=== PATIENT | male | born 1975 | race Caucasian/White ===

== ENCOUNTER 2016-03-08 11:09 | Emergency (ER) | payer SELFPAY ==
[2016-03-08] MEDS ORDERED: HYDROcodone 7.5MG/APAP 325MG 1 EA TAB PO ONE (11:23)
--- NOTE | 2016-03-08 11:26 | ED.PDOC ---
History of Present Illness - General Chief Complaint: Lower Extremity Injury Stated Complaint: rt ankle injury Time Seen by Provider: 03/08/16 11:22 Additional Information: THIS PATIENT INJURED HIS LEFT ANKLE WHILE CLOSING A HEAVY GARAGE DOOR. NOW C/O PAIN AND SWELLING TO THE LATERAL ASPECT OF THE LEFT ANKLE. - History of Present Illness Occurred: just prior to arrival Pain - Lower Extremity: moderate: Left Ankle Method of Injury: direct blow Improving Factors: nothing Worsening Factors: movement Allergies/Adverse Reactions: Allergies NO KNOWN ALLERGY Allergy (Verified 12/31/14 13:48) Home Medications: Ambulatory Orders Acetaminophen W/ Codeine [Tylenol W/ CODEINE #3] 1 ea PO QID PRN #14 12/31/14 Diclofenac Potassium 50 mg PO BID #20 tab 03/08/16 Tramadol HCl 50 mg PO Q6HRS #20 tab 03/08/16 Review of Systems - Review of Systems Constitutional: States: no symptoms reported EENTM: States: no symptoms reported Respiratory: States: no symptoms reported Cardiology: States: no symptoms reported Gastrointestinal/Abdominal: States: no symptoms reported Genitourinary: States: no symptoms reported Musculoskeletal: States: joint pain, joint swelling Skin: States: no symptoms reported, change in color Neurological: States: no symptoms reported Endocrine: States: no symptoms reported Hematologic/Lymphatic: States: no symptoms reported All other Systems: Reviewed and Negative Past Medical History (General) - Patient Medical History Hx Stroke: No Hx Congestive Heart Failure: No Hx Diabetes: No Hx MRSA: No - Vaccination History Hx Influenza Vaccination: No Hx Pneumococcal Vaccination: No - Social History Hx Tobacco Use: Yes Family Medical History - Family History Father Family History: No Known Living Status: Still Living Physical Exam - Physical Exam General Appearance: Alert, Well Developed, Well Hydrated Eyes, Ears, Nose, Throat: PERRL/EOMI, normal ENT inspection Neck: non-tender, full range of motion, supple Cardiovascular/Respiratory: regular rate, rhythm, normal peripheral pulses, no JVD, normal breath sounds, no respiratory distress Back: normal inspection, no CVA tenderness Thigh/Hip: normal inspection, non-tender Leg: normal inspection Knee: normal inspection Ankle: deformity, swelling Foot: normal inspection DTR - Lower Extremities: 2+: Achilles, left, Achilles, right Mental Status: alert, oriented x 3 Progress - Results/Orders Results/Orders: PRELIMINARY REPORT: NO FRACTURE NOTED. HE WILL BE DISCHARGED ON CRUTCHES AND TO F/U WITH HIS PCP. - EKG/XRAY/CT XRAY: ankle Xray Comments: PRELIMINARY REPORT : NO FX OR DISLOCATION NOTED. Departure - Departure Clinical Impression: Sprain of left ankle or foot Contusion of left ankle Qualifiers: Encounter type: initial encounter Qualifier Code: (S90.02XA) Contusion of left ankle, initial encounter Time of Disposition: 11:57 Disposition: Discharge to Home or Self Care Departure Forms: ED Discharge - Pt. Copy, Patient Portal Self Enrollment Diet: resume usual diet Activity: walking as tolerated Prescriptions: Tramadol HCl 50 mg PO Q6HRS #20 tab Diclofenac Potassium 50 mg PO BID #20 tab Home Medications: Ambulatory Orders Acetaminophen W/ Codeine [Tylenol W/ CODEINE #3] 1 ea PO QID PRN #14 12/31/14 Diclofenac Potassium 50 mg PO BID #20 tab 03/08/16 Tramadol HCl 50 mg PO Q6HRS #20 tab 03/08/16 Additional Instructions: TO YOUR FAMILY DOCTOR IN ONE WEEK
[2016-03-08 12:15] VITALS: BP 122/72; TEMP 97.8; O2SAT 96
--- NOTE | 2016-03-08 13:06 | RAD ---
EXAM DESCRIPTION: XR ANKLE 3 OR MORE VIEWS CLINICAL HISTORY: rt ankle injury COMPARISON: None. TECHNIQUE: Three views. FINDINGS: Small joint effusion is evident. No fracturing is detected. Minimal intertarsal arthritis is observed. IMPRESSION: A joint effusion is evident. No fracturing is seen. Electronically signed by: Jacob Llamas MD 03/08/2016 13:04
== END 2016-03-08 12:10 | disposition home or self-care (01) ==
LOC: ER 11:09
DX: S93.402A Sprain of unspecified ligament of left ankle, initial encounter (principal); Z87.891 Personal history of nicotine dependence; W22.8XXA Striking against or struck by other objects, initial encounter

== ENCOUNTER 2016-04-28 12:29 | Emergency (ER) | payer OTHER ==
[2016-04-28 13:04] VITALS: TEMP 98; O2SAT 98
--- NOTE | 2016-04-28 13:35 | RAD ---
Frontal, lateral, and oblique views of the right hand. Indication: crush injury to second and third digits. Comparison: December 31, 2014. Impression: Examination limited due to positioning. Chronic appearing deformity tuft second distal phalanx. No acute fracture or malalignment. If there is persistent anatomic snuffbox tenderness, repeat wrist imaging to include a scaphoid view is recommended in one week to evaluate for occult scaphoid fracture. Soft tissues are intact without radiopaque foreign body. Electronically signed by: Davie Espinal MD 04/28/2016 1:34 PM DIRECTOR OF SALES AND MARKETING
[2016-04-28] MEDS ORDERED: LIDOCAINE 1% 10 ML VIAL INJ ONE (13:55)
[2016-04-28] MEDS ORDERED: HYDROcodone 7.5MG/APAP 325MG 1 EA TAB PO ONE (14:41)
--- NOTE | 2016-04-28 15:15 | ED.PDOC ---
History of Present Illness - General Chief Complaint: Upper Extremity Injury Stated Complaint: smashed right hand Time Seen by Provider: 04/28/16 13:14 Source: patient Exam Limitations: no limitations - History of Present Illness Initial Comments: The patient is a 40-year-old male presenting to the emergency room secondary to crush injury to his right hand. He got his second and third digits just distal to the metacarpal phalangeal joints caught between a hard surface and a forklift. There is a 1 inch laceration over the inner aspect of the second digit. There is significant swelling. Sensation at this time appears to be preserved. Capillary refill appears to be less than 2 seconds. Alignment appears to be good. Range of motion appears to be as good as can be expected with the swelling. No other injuries. No other lacerations. S1 and blood loss to this time approximately 5 cc. He previously injured the second digit approximately 2 months ago as well with a distal tuft fracture. He is up- to-date on his tetanus from that injury. Timing/Duration: momentarily Severity: severe Improving Factors: nothing Worsening Factors: nothing Associated Symptoms: denies symptoms Allergies/Adverse Reactions: Allergies NO KNOWN ALLERGY Allergy (Verified 12/31/14 13:48) Home Medications: Ambulatory Orders Acetaminophen W/ Codeine [Tylenol W/ CODEINE #3] 1 ea PO QID PRN #14 12/31/14 Diclofenac Potassium 50 mg PO BID #20 tab 03/08/16 Tramadol HCl 50 mg PO Q6HRS #20 tab 03/08/16 Comjuvhlvsqzv-Yncn-Juewtvxwly [Fioricet] 1 ea PO Q8H PRN #21 tab 04/28/16 Sulfamethoxazole-Trimethoprim [Bactrim Ds 800-160 mg] 1 tab PO DAILY #5 tab 03/16 Review of Systems - Review of Systems Constitutional: States: no symptoms reported EENTM: States: no symptoms reported Respiratory: States: no symptoms reported Cardiology: States: no symptoms reported Gastrointestinal/Abdominal: States: no symptoms reported Genitourinary: States: no symptoms reported Musculoskeletal: States: see HPI Skin: States: see HPI Neurological: States: no symptoms reported Endocrine: States: no symptoms reported All other Systems: No Change from Baseline Past Medical History (General) - Patient Medical History Hx Seizures: No Hx Stroke: No Hx Dementia: No Hx Asthma: No Hx of COPD: No Hx Cardiac Disorders: No Hx Congestive Heart Failure: No Hx Pacemaker: No Hx Hypertension: No Hx Thyroid Disease: No Hx Diabetes: No Hx Gastroesophageal Reflux: No Hx Renal Disease: No Hx Cancer: No Hx of HIV: No Hx Hepatitis C: No Hx MRSA: No Surgical History: tonsillectomy - Vaccination History Hx Tetanus, Diphtheria Vaccination: Yes Hx Influenza Vaccination: No Hx Pneumococcal Vaccination: No - Social History Hx Tobacco Use: Yes Hx Alcohol Use: No Hx Substance Use: No Hx Substance Use Treatment: No Hx Depression: No - Female History Patient is a Female of Child Bearing Age (10 -59 yrs old): No Family Medical History - Family History Father Family History: No Known Living Status: Still Living Physical Exam - Physical Exam General Appearance: Alert, Anxious, No apparent distress Eye Exam: bilateral normal Ears, Nose, Throat: normal ENT inspection Neck: full range of motion, supple Respiratory: no respiratory distress, no accessory muscle use Cardiovascular/Chest: normal peripheral pulses, no edema, other - regular rate Peripheral Pulses: radial,right: 2+, radial,left: 2+ Rectal Exam: deferred Extremity: no pedal edema, no calf tenderness, normal capillary refill, other - see history of present illness. Neurologic: alert, normal mood/affect, oriented x 3 Skin Exam: normal color - with the exception of the laceration and bruising Comments: Vital Signs - 24 hr 04/28/16 12:59 Temperature 98.0 F Pulse Rate [ 74 left arm] Respiratory 18 Rate Blood Pressure 122/75 [Left Arm] O2 Sat by Pulse 98 Oximetry Progress - Progress Progress: 04/28/16 15:16 the patient is a 40-year-old male presenting to the emergency room secondary to crush injury from a forklift 2 the second and third digit of his right hand.. X-ray shows no evidence of any new fracture or dislocation. Laceration to the inner aspect of the second digit of the right hand was cleaned with hydrogen peroxide and then Steri-Strips were used to reapproximate tissue. digital block was donewith 6 cc of Xylocaine without epinephrine for cleaning and repair. Risks and benefits were explained prior and patient did agree to proceed. He can archie tape the second and third digit in the weeks to come to help reduce discomfort. Steri-Strips can fall off on their own. Fioricet will be used for pain control and he can use additionally ibuprofen if needed. Bactrim will be used for 5 days for prophylaxis. ER warnings were given for any acute worsening. If pain worsens instead of improves over the coming weeks and repeat x-ray may be warranted. - Results/Orders Results/Orders: x-ray of the hand shows no evidence of new fracture. There is evidence of the previous fracture Departure - Departure Clinical Impression: Laceration of finger Qualifiers: Encounter type: initial encounter Qualifier Code: (S61.219A) Laceration without foreign body of unspecified finger without damage to nail, initial encounter Disposition: Discharge to Home or Self Care Condition: Fair Departure Forms: ED Discharge - Pt. Copy, Patient Portal Self Enrollment Instructions: DI for Laceration Repair -- Finger Diet: regular diet Activity: no pushing/pulling with affected limb Prescriptions: Sulfamethoxazole-Trimethoprim [Bactrim Ds 800-160 mg] 1 tab PO DAILY #5 tab Skajaeobgxtpl-Fprh-Rmkpeefwky [Fioricet] 1 ea PO Q8H PRN #21 tab PRN Reason: Pain Home Medications: Ambulatory Orders Acetaminophen W/ Codeine [Tylenol W/ CODEINE #3] 1 ea PO QID PRN #14 12/31/14 Diclofenac Potassium 50 mg PO BID #20 tab 03/08/16 Tramadol HCl 50 mg PO Q6HRS #20 tab 03/08/16 Dhqrjduvbimjb-Qunb-Thtwdkswbf [Fioricet] 1 ea PO Q8H PRN #21 tab 04/28/16 Sulfamethoxazole-Trimethoprim [Bactrim Ds 800-160 mg] 1 tab PO DAILY #5 tab 03/16 Additional Instructions: the patient is a 40-year-old male presenting to the emergency room secondary to crush injury from a forklift 2 the second and third digit of his right hand.. X-ray shows no evidence of any new fracture or dislocation. Laceration to the inner aspect of the second digit of the right hand was cleaned with hydrogen peroxide and then Steri-Strips were used to reapproximate tissue. digital block was donewith 6 cc of Xylocaine without epinephrine for cleaning and repair. He can archie tape the second and third digit in the weeks to come to help reduce discomfort. Steri-Strips can fall off on their own. Fioricet will be used for pain control and he can use additionally ibuprofen if needed. Bactrim will be used for 5 days for prophylaxis. ER warnings were given for any acute worsening. If pain worsens instead of improves over the coming weeks and repeat x-ray may be warranted.
[2016-04-28 18:02] VITALS: BP 121/83
== END 2016-04-28 15:30 | disposition home or self-care (01) ==
LOC: ER 12:29
DX: S61.219A Laceration without foreign body of unspecified finger without damage to nail, initial encounter (principal); Z79.899 Other long term (current) drug therapy; Z87.891 Personal history of nicotine dependence; W31.89XA Contact with other specified machinery, initial encounter

== ENCOUNTER 2016-12-02 01:25 | Emergency (ER) | payer BC ==
[2016-12-02 01:38] VITALS: TEMP 96.4
[2016-12-02] MEDS ORDERED: HYDROmorphone HCL INJ 2 MG/ML VIAL IV ONE ×3 (01:48→06:05)
[2016-12-02] MEDS ORDERED: ONDANSETRON INJ 4 MG/2 ML VIAL IV ONE (01:48)
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
--- NOTE | 2016-12-02 02:24 | CT ---
Clinical History : Severe R temporal ROSE X 5 weeks , MAIN Exam : CT Head without contrast 12/02/2016 1:48 AM CDT Comparisons : none. Technique : Volumetric CT acquisition was performed through the brain. Images in the axial, coronal, and sagittal planes were presented for interpretation. This exam was performed according to our departmental dose-optimization program, which includes automated exposure control, adjustment of the mA and/or kV according to patient size and/or use of iterative reconstruction technique. Radiation dose : [id number] Findings: The soft tissue structures of the face, scalp, and orbits are normal. The globes remain intact. The visualized portions of the paranasal sinuses and mastoid air-cells are clear. The calvarium remains intact . There is no acute intracranial hemorrhage, midline shift, or mass effect. The ventricles are normal in size and the posterior fossa structures are normal in appearance. Limited evaluation of the vasculature demonstrates no gross abnormalities. There is no CT evidence of acute infarction. Impression: No acute intracranial process. Electronically signed by: Megha Arenas MD 12/02/2016 2:23 AM CDT
[2016-12-02] MEDS ORDERED: SODIUM CHLORIDE 0.9% 1000ML 1,000 ML IVS ONE (03:09)
[2016-12-02] MEDS ORDERED: SODIUM CHLORIDE 0.9% 1000ML 1,000 ML ONE (03:10)
[2016-12-02] MEDS ORDERED: methylPREDNISolone SODIUM SUC 125 MG/2 ML VIAL IV ONE (03:34)
[2016-12-02] MEDS ORDERED: KETOROLAC TROMETHAMINE INJ 30 MG/ML VIAL IV ONE (03:34)
[2016-12-02] MEDS ORDERED: MAGNESIUM SULFATE INJ 1 GM in SODIUM CHLORIDE 0.9% 100ML 100 ML IVPB ONE (04:21)
[2016-12-02] MEDS ORDERED: MAGNESIUM SULFATE INJ 1 GM/2 ML VIAL ONE (04:47)
[2016-12-02] MEDS ORDERED: SODIUM CHLORIDE 0.9% 100ML 100 ML IVPB ONE (04:47)
[2016-12-02 06:01] VITALS: BP 129/75; O2SAT 99
[2016-12-02] MEDS ORDERED: CYCLOBENZAPRINE HCL 10 MG TAB PO ONE (06:05)
== END 2016-12-02 06:30 | disposition home or self-care (01) ==
LOC: ER 01:25
DX: G44.52 New daily persistent headache (NDPH) (principal); Z87.891 Personal history of nicotine dependence
CPT/HCPCS: 70450; 80053; 85025; J1170; J1885; J2060; J2405; J2930; J3475; J7030; J7050

== ENCOUNTER → 2016-12-02 | Outpatient (CLI) | payer BC ==
--- NOTE | 2016-12-04 15:50 | CT ---
EXAM DATE: 12/02/2016 3:00 PM CDT. PROCEDURE: CT SINUSES WITHOUT IV CONTRAST. INDICATION: HEADACHE/PAIN. COMPARISON: None. TECHNIQUE: Axial CT images of the face were obtained without intravenous contrast. Coronal and sagittal reformatted images are provided. This exam was performed according to our departmental dose-optimization program which includes use of Automated Exposure Control, adjustment of the mA and/or kV according to patient size and/or use of iterative reconstruction technique. FINDINGS: The frontal sinuses are clear. There is partial opacification of the frontal sinus drainage pathways at the ostia. Mild mucosal thickening of the ethmoid sinuses. The sphenoid sinuses are clear however the sphenoid ostia are not well delineated on this exam. The maxillary sinuses are clear. There is partial opacification extending through the maxillary ostia with otherwise unremarkable ostiomeatal units. Curvilinear radiopaque possible suture within the anterior right maxillary sinus wall. No significant nasal septal deviation. The partially visualized brain is unremarkable. Normal orbits. Remainder of face is unremarkable. IMPRESSION: Mild mucosal thickening scattered throughout the ethmoid sinuses. Partial opacification of the frontal sinus drainage pathways and maxillary ostia without other findings to suggest outflow tract obstruction. Electronically signed by: Jasper Amador MD 12/04/2016 3:49 PM CDT
== END | disposition home or self-care (01) ==
LOC: CT 15:00
PROVIDERS: ATTEND Family Medicine
DX: G43.009 Migraine without aura, not intractable, without status migrainosus (principal)